=== PATIENT | male | born 1985 | race Caucasian/White ===

== ENCOUNTER → 2022-09-05 | Day surgery (SDC) | payer BC ==
[~2022-09-05] MED LIST: ACETAMINOPHEN/CODEINE 300MG - 30MG TAB ONE; DEXAMETHASONE SOD PHOS 10 MG/1 ML VIAL ONE; EPINEPHRINE HCL 1:1000 1ML 1 MG/ML AMP ONE; FENTANYL CITRATE/PF 100MCG/2 ML INJ ONE; GLYCOPYRROLATE INJ 0.2 MG/ML VIAL ONE; LACTATED RINGER'S 1,000 ML ONE; LIDOCAINE 1% W/EPINEPHRINE 20 ML VIAL ONE; LIDOCAINE HCL 2% LOCAL INJ 5 ML SDV VIAL INJ ONE; MIDAZOLAM HCL 2 MG/2 ML VIAL ONE; ONDANSETRON HCL INJ 2MG/ML 2ML 2 MG/ML VIAL ONE; POVIDONE IODINE 0.05% 0.05 % ML PO ONE; PROPOFOL IV EMULSION 10 MG/ML 20 ML VIAL ONE; SEVOFLURANE INHAL SOLN 250 ML PEN BTL ONE; VITAMIN D3 COM1 EACH; ZINC PO; [UNRECOGNIZED DRUG - OTHER]; [UNRECOGNIZED DRUG - OTHER]
[2022-09-05 14:00] VITALS: BP 121/84
== END | disposition home or self-care (01) ==
LOC: OR 08:52
PROVIDERS: ATTEND Otolaryngology Otolaryngology/Facial Plastic Surgery
DX: J32.0 Chronic maxillary sinusitis (principal); J32.1 Chronic frontal sinusitis; J32.3 Chronic sphenoidal sinusitis; J32.2 Chronic ethmoidal sinusitis; J34.89 Other specified disorders of nose and nasal sinuses; J34.2 Deviated nasal septum; F17.220 Nicotine dependence, chewing tobacco, uncomplicated
CPT/HCPCS: 31259; 31267; 88304; J0171; J1100; J2001; J2250; J2405; J2704; J3010; J7121